=== PATIENT | female | born 1985 | race Asian ===

== ENCOUNTER 2019-02-18 06:10 | Inpatient (IN) | payer OTHER ==
--- NOTE | 2019-02-17 19:04 | HP ---
General Information - Reason for Visit at 39 weeks with a prior Section, desires repeat Section. - General Information Maternal Age: 33 Grav: 2 Para: 1 SAB: 0 IEA: 0 Estimated Due Date: 02/25/19 Determined By: Early Ultrasound Gestational Age in Weeks/Days: 39 Maternal Blood Type and Rh: A Positive - Results this Serology/RPR Result: Non-Reactive Rubella Result: Immune HBsAg Result: Negative HIV Result: Negative GBS Culture Result: Negative Past Medical History Delivery History: Hx C/Section Pertinent Past Medical History: See Records Pertinent Past Surgical History: See Records - Planned primary Section for Macrosomia Pertinent Family History: See Records Review of Systems Constitutional: Comfortable CV Complaint: No Respiratory: Shortness of Breath: No Gastrointestinal: No Nausea/Vomiting, Normal Bowel Movement Genitourinary: No Dysuria, No Bleeding, No Leaking Fluid Musculoskeletal: No Complaint, No Epigastric Pain Neurological: No Headache, No Visual Changes Movement: Normal Exam Allergies/Adverse Reactions: Allergies No Known Allergies Allergy (Verified 02/16/19 14:57) Temp 98.6 BP 110/62 P 72 RR 20 - Measurements Height: 5 ft 4 in Weight: 143 lb 4.807 oz Weight in lbs: 143.797931 Body Mass Index (BMI): 24.5 Pre- Weight: 120 lb Weight Gained This : 23.300 lbs and 0.007 ozs - Exam Breast: Breast Exam Deferred CVA: No CVA Tenderness Extremities: No Edema Heart: Normal Rhythm/Heart Sounds HEENT: No Significant Findings Lungs: Clear Bilaterally Rectal: Rectal Exam Deferred Reflexes: DTR 2+ Thyroid: No Thyromegaly - Abdominal Exam Abdomen Exam: Non-Tender, Fundal Height Consistent with Dates - Ultrasound/Biophysical Profile Ultrasound Status: Not Done Targeted Exam Findings See L&D Outpatient Visit Provider Note for Findings: N/A Cervical Exam: Closed Effacement: <50% Station: -1 Presenting Part: Vertex Membrane Status: Intact EFM Findings - External Monitor Findings Baseline Heart Rate: 140 - Dopplers Contractions: None Assessment/Plan - Assessment Term , prior . Desires repeat section - Obstetrical Risk Factors Obstetrical Risk Factors: Previous C/Section in Labor - Plan Plan: IV Hydration, Expedite C/S Delivery, Antibiotic Prophylaxis - Date/Time of Admission Date of Admission: 02/18/19 Time of Admission: 06:30
[~2019-02-18 06:10] MED LIST: Buffered Lidocaine 1% SYRIN* 1 ML/SYRINGE INTRADERM ONE; Lactated Ringers 1000 ML Bag* 1,000 ML IV ONE; Lactated Ringers 1000 ML Bag* 1,000 ML IV SCH
[2019-02-18] MEDS ORDERED: ceFOXitin 2 GM IVPREMIX* 2 GM/50 ML BAG IVPB ONE (07:00)
[2019-02-18] MEDS ORDERED: Bupivacaine 0.5% SDV PF* 30ML VIAL ONE (07:38)
[2019-02-18] MEDS ORDERED: OXYTOCIN* 10 UNITS/ML 1 ML VIAL ONE (07:38)
[2019-02-18] MEDS ORDERED: Sodium Citrate/Citric Acid* 15 ML UDC PO ONE (07:41)
[2019-02-18] MEDS ORDERED: Morphine PF AMP (0.5MG/ML)* 5 MG/10 ML AMP ONE (07:41)
[2019-02-18] MEDS ORDERED: Sodium Citrate/Citric Acid* 15 ML UDC ONE (07:44)
[2019-02-18 08:26] LABS: Urine Benzodiazepine Screen None Detected (None Detect); Urine Opiates Screen None Detected (None Detect)
[2019-02-18] MEDS ORDERED: Phenylephrine 40 MCG/ML SYRINGE ONE (08:33)
[2019-02-18] MEDS ORDERED: diPHENhydraMINE IV* 50 MG/ML 1 ml VIAL (BENADRYL) ONE (08:51)
[2019-02-18] MEDS ORDERED: fentaNYL* 50 MCG/ML 2 ML VIAL (100 MCG VIAL) IV PRN (08:54)
[2019-02-18] MEDS ORDERED: Naloxone* 0.4 MG/ML 1 ML VIAL IV PRN ×2 (08:54→08:55)
[2019-02-18] MEDS ORDERED: Scopolamine 1.5 mg* PATCH TRANSDERM PRN (08:55)
[2019-02-18] MEDS ORDERED: HYDROcodone/ACETAMIN 5-325 MG* 1 TAB PO PRN ×2 (08:55)
[2019-02-18] MEDS ORDERED: Ondansetron INJ* 2 MG/ML VIAL IV PRN (08:55)
[2019-02-18] MEDS ORDERED: DiMENhydriNATE IV* 50 MG/ML VIAL IV PUSH PRN (08:55)
[2019-02-18] MEDS ORDERED: PROCHLORPERAZINE INJ 5 MG/ML 2 ML VIAL IV PRN (08:55)
[2019-02-18] MEDS ORDERED: diPHENhydraMINE IV* 50 MG/ML 1 ml VIAL (BENADRYL) IV PRN (08:55)
[2019-02-18] MEDS ORDERED: Ketorolac INJ* 30 MG/ML 1 ML VIAL ONE (09:03)
[2019-02-18] MEDS ORDERED: Ondansetron INJ* 2 MG/ML VIAL ONE (09:03)
[2019-02-18] MEDS: Ketorolac INJ* 30 MG/ML 1 ML VIAL IV SCH ×2 (09:10→17:30)
[2019-02-18] MEDS: Acetaminophen TAB* 325 MG PO SCH ×4 (14:00→22:13)
[2019-02-18] MEDS ORDERED: Witch Hazel PAD* JAR TOPICAL PRN (17:16)
[2019-02-18] MEDS: Simethicone TAB* 80 MG TAB.CHEW PO SCH ×2 (17:36→20:13)
[2019-02-18] MEDS ORDERED: Lactated Ringers 1000 ML Bag* 1,000 ML IV SCH (18:00)
--- NOTE | 2019-02-18 19:48 | OP ---
OPERATIVE REPORT: DATE OF OPERATION: 02/18/19 DATE OF : 87 SURGEON: Marisa Curry MD. LOKIE DRIVER: Loyda Roblero CNM. ANESTHESIOLOGIST: Dr. Booker. ANESTHESIA: Spinal. PRE-OP DIAGNOSIS: Thirty-nine weeks' gestation with history of previous C- section and keloid scar. POST-OP DIAGNOSIS: Thirty-nine weeks' gestation with history of previous C- section and keloid scar. PROCEDURE PERFORMED: Repeat low transverse section and keloid scar excision. ESTIMATED BLOOD LOSS: 700 cc. URINE OUTPUT: 100 cc. IV FLUIDS: 2200 cc lactated Ringer's. MATERIALS TO LAB: Cord blood and keloid scar tissue. INDICATIONS: This patient is a 33-year-old 2, para 1 who presented today for her scheduled repeat section. The patient was extensively counseled and consent was signed. Of note, the patient was noted to have a very thick scar formation on part of her previous incision, so we discussed removing this at the time of surgery and she desired to have this done. FINDINGS: Normal-appearing uterus, fallopian tubes, and ovaries. Delivery was productive of a 7-pound 15-ounce male with Apgars of 9 and 9. Time of delivery was 0844. COMPLICATIONS: None. DESCRIPTION OF PROCEDURE: The risks, benefits, and alternatives were described to the patient, and informed consent was obtained. The patient was taken to the operating room with IV running, where spinal anesthesia was induced and found to be adequate. The patient was prepped and draped in normal sterile fashion in the dorsal supine position with a leftward tilt. The scar from her previous incision was excised using the scalpel and Bovie. This was handed off. The incision was carried down to the underlying fascia using the scalpel and Bovie. The fascia was scored in the midline, and the incision was extended using Mcdonough scissors. The fascia was dissected off the underlying rectus muscles using blunt and sharp dissection. The rectus muscles were in the midline using dissection with a Mei clamp. The peritoneum was then entered bluntly. A bladder blade was placed. A low transverse uterine incision was then made with the scalpel. This was carried down to the amniotic membranes. The membranes were then ruptured, productive of clear fluid. The uterine incision was extended using blunt traction. The head was elevated to the level of the incision, and, with fundal pressure, the head delivered without difficulty. The shoulders then were also both delivered and the body followed. The had excellent tone and cried immediately on delivery. The cord was doubly clamped and cut. The was then handed to the awaiting cutter wet machine. Cord blood was collected. The placenta was delivered with manual extraction. The uterus was then exteriorized and cleared of all clots and debris. The uterine incision was then reapproximated using 0 Vicryl in a running-locked fashion. A second layer of imbricating 0 Vicryl sutures was then also placed for good hemostasis. The posterior cul-de-sac was irrigated with saline. The uterus was then returned to the abdomen. The incision was reinspected and still noted to be hemostatic. The peritoneum was closed with 3-0 Vicryl in a running fashion. The fascia was closed with 0 Vicryl in a running fashion. The subcutaneous tissues were copiously irrigated and made hemostatic using the Bovie. The skin was then closed with 4-0 Monocryl in a subcuticular stitch. Mastisol and steristrips were then applied. A sterile bandage was then placed over the incision. The patient tolerated the procedure well. Sponge, lap and needle counts were correct x2. [id number]/[facility] #: [id number] [facility]
[2019-02-18] MEDS: Docusate CAP* 100 MG PO SCH (20:13)
[2019-02-19] MEDS ORDERED: oxyCODONE/Acetamin 5/325 MG* TAB PO PRN ×2
[2019-02-19] MEDS: Ketorolac INJ* 30 MG/ML 1 ML VIAL IV SCH ×2 (00:24→06:39)
[2019-02-19 06:35] LABS: ABS Eosinophils 0.4 10^3/ul (0-0.6); ABS Lymphocytes 1.9 10^3/ul (1.0-4.8); ABS Monocytes 0.8 10^3/ul (0-0.8); ABS Neutrophils 6.6 10^3/ul (1.5-7.7); Eosinophil % 3.6 %; Hematocrit 28 % (35-47); Hemoglobin 9.9 g/dL (12.0-16.0); Lymphocyte % 19.3 %; Mean Corpuscular HGB Conc 35 g/dL (31-36); Mean Corpuscular Hemoglobin 33 pg (27-31); Mean Corpuscular Volume 95 fL (80-97); Mean Platelet Volume 8.7 fL (7.4-10.4); Nucleated Red Blood Cells % 0.1; Platelet Count 248 10^3/uL (150-450); Red Blood Count 2.98 10^6 /uL (3.70-4.87); Red Cell Distribution Width 14 % (10-15); White Blood Count 9.6 10^3/uL (3.5-10.8)
[2019-02-19] MEDS: Docusate CAP* 100 MG PO SCH ×3 (09:38→21:51)
[2019-02-19] MEDS: Ferrous Gluconate TAB* 324 MG TAB PO SCH ×3 (09:38→22:03)
[2019-02-19] MEDS: Simethicone TAB* 80 MG TAB.CHEW PO SCH ×4 (09:39→21:51)
[2019-02-19] MEDS: Ibuprofen TAB* 600 MG PO PRN ×2 (12:55→21:52)
[2019-02-19] MEDS ORDERED: Ferrous Gluconate TAB* 324 MG TAB ONE (21:47)
[2019-02-20] MEDS: Ferrous Gluconate TAB* 324 MG TAB PO SCH ×2 (08:23→21:09)
[2019-02-20] MEDS: Docusate CAP* 100 MG PO SCH ×3 (08:23→21:09)
[2019-02-20] MEDS: Simethicone TAB* 80 MG TAB.CHEW PO SCH ×3 (08:24→21:09)
[2019-02-21] MEDS: Ibuprofen TAB* 600 MG PO PRN ×2 (03:24→09:28)
[2019-02-21 07:57] VITALS: BP 111/67
[2019-02-21] MEDS ORDERED: Scopolamine PATCH Remove* 1 NOTE MISC PATCH OFF PRN (08:56)
[2019-02-21] MEDS: Docusate CAP* 100 MG PO SCH (09:28)
[2019-02-21] MEDS: Ferrous Gluconate TAB* 324 MG TAB PO SCH (09:29)
[2019-02-21] MEDS: Simethicone TAB* 80 MG TAB.CHEW PO SCH (09:29)
== END 2019-02-21 11:24 | disposition home or self-care (01) | DRG 788 ==
LOC: MCHOB 06:10
PROVIDERS: ADMIT Obstetrics & Gynecology; ATTEND Obstetrics & Gynecology
PROC: 10D00Z1 Extraction of Products of Conception, Low, Open Approach (ICD-10-PCS; principal; 2019-02-18 07:45)
DX: O34.211 Maternal care for low transverse scar from previous cesarean delivery (principal); N85.8 Other specified noninflammatory disorders of uterus; O90.81 Anemia of the puerperium; D64.9 Anemia, unspecified; Z3A.39 39 weeks gestation of pregnancy; Z37.0 Single live birth
CPT/HCPCS: 36415; 80307; 85025; A9270-GY; J0694; J1200; J1885; J2405; J2590; J3490